=== PATIENT | female | born 1995 | race Two or more races ===

== ENCOUNTER 2018-10-11 11:32 | Emergency (ER) | payer OTHER ==
[~2018-10-11] VITALS: Ht 162.6 cm; Wt 57.2 kg
[2018-10-11] MEDS ORDERED: ZITHROMAX500 MG PO (14:48)
[2018-10-11] MEDS ORDERED: ORPHENADRINE C100 MG PO (14:48)
== END 2018-10-11 14:49 | disposition home or self-care (01) ==
LOC: ER 11:32
DX: R51 Headache (principal)

== ENCOUNTER 2019-02-09 10:41 | Emergency (ER) | payer OTHER ==
[~2019-02-09] VITALS: Ht 162.6 cm; Wt 56.7 kg
[~2019-02-09 10:41] MED LIST: ORPHENADRINE C100 MG PO; ZITHROMAX500 MG PO
== END 2019-02-09 14:23 | disposition home or self-care (01) ==
LOC: ER 10:41
DX: J06.9 Acute upper respiratory infection, unspecified (principal); B96.0 Mycoplasma pneumoniae [M. pneumoniae] as the cause of diseases classified elsewhere